=== PATIENT | female | born 1985 | race Caucasian/White ===

== ENCOUNTER 2017-09-18 13:43 | Emergency (ER) | payer MEDICAID ==
[~2017-09-18] VITALS: Ht 147.3 cm; Wt 58.5 kg
--- NOTE | 2017-09-18 14:20 | NUR ---
A/OX4, C/O FEVER, HEADACHE, BODYACHES. AFEBRILE. NAD RR EVEN AND UNLABORED. SEEN AND EVALUATED BY YESSENIA PASCUAL
[2017-09-18] MEDS ORDERED: ACETAMINOPHEN 325 MG TABLET PO ONE (14:30)
[2017-09-18] MEDS ORDERED: ACETAMINOPHEN 325 MG TABLET ONE (14:30)
[2017-09-18] MEDS ORDERED: IV NS 0.9% 1,000 ML BAG IV ONE (14:30)
--- NOTE | 2017-09-18 15:35 | NUR ---
IV removed. Catheter intact and site benign. Pressure and 4x4 applied to site. No bleeding noted.Patient discharged to home in stable condition. Written and verbal after care instructions given. Patient verbalizes understanding of instruction.
[2017-09-18 15:36] VITALS: BP 116/75
== END 2017-09-18 15:37 | disposition home or self-care (01) ==
LOC: ER 13:44
DX: B34.9 Viral infection, unspecified (principal); Z98.51 Tubal ligation status
CPT/HCPCS: A4606; J7030; Z7610